=== PATIENT | male | born 1970 | race Caucasian/White ===

== ENCOUNTER 2022-07-18 11:34 | Day surgery (SDC) | payer OTHER, SELFPAY ==
[2022-07-18 11:51] VITALS: BMI 37.3
[2022-07-18] MEDS: LACTATED RINGERS 1000 ML 1,000 ML 100 ML IV (12:00)
[2022-07-18 12:29] VITALS: BP 149/103; PULSE 76; RESP 18; TEMP 36.4; O2SAT 96
[2022-07-18] MEDS: SODIUM CHLORIDE 0.9 % (FLUSH) 10 ML SYRINGE IVF (12:33)
[2022-07-18] MEDS: CEFAZOLIN 2 GM INJ IVP (13:02)
[2022-07-18] MEDS: LIDOCAINE 1% 5 ml (pf) 5 ML VIAL 10 ML INJECTION (13:07)
[2022-07-18] MEDS: BUPIVACAINE 0.25% 30 ML 10 ML INJECTION (13:07)
--- NOTE | 2022-07-18 13:40 | PM.GSPRC ---
Operative Note Date of procedure: 07/18/22 Type of Procedure: Excision of right forearm lipoma Procedure Description: After discussing the risks and benefits of the procedure, the patient signed informed consent.? The operative site was marked and the patient was brought to the operating room and placed on the operating table in supine position.? Care was taken to pad the patient's pressure points.?? The patient was then sedated by anesthesia.?? The operative site was then prepped and draped in the usual sterile fashion.? A time-out was then performed. Local anesthetic of 1% lidocaine and 0.25% Marcaine was used to infiltrate the surgical field. A a vertical incision was made with a 15 scalpel. Subcutaneous tissue was dissected down with electrocautery. A well-circumscribed, lobulated mass was encountered. Surrounding attachments were taken down with electrocautery. There was evidence of a superficial nerve, attached to the inferior aspect of the mass, this was gently taken down taking care not to injure the nerve. The mass was able to be removed in its entirety and measured 5.5 cm x 5 cm x 3 cm in size. The resulting incision was surveyed for hemostasis, which was excellent at the end of the case. The incision measured 4 cm in size. The incision was brought together with interrupted 3 0 Vicryl and running 4-0 Monocryl. suture ? Sterile dressings were then applied. ? The patient was then woken and transported to the recovery area in stable condition. ? The patient tolerated the procedure well. Findings: Large lipomatous mass of the right forearm. Anesthesia: MAC Surgeon: Ligia Croft MD Estimated blood loss (mL): 15 Condition: stable Disposition: same day
--- NOTE | 2022-07-18 13:44 | W.ANESCHARGE ---
Anesthesia Charges Start Date/Time Anesthesia Start Date: 07/18/22 Anesthesia Start Time: 12:53 Stop Date/Time Anesthesia Stop Date: 07/18/22 Anesthesia Stop Time: 13:45 Summary Emergency: No
[2022-07-18 13:46] VITALS: BP 137/93; PULSE 75; RESP 16; TEMP 36.3; O2SAT 96
[2022-07-18 14:00] VITALS: BP 139/107; PULSE 68; RESP 16; O2SAT 98
[2022-07-18 14:15] VITALS: BP 141/98; PULSE 63; RESP 16; O2SAT 95
[2022-07-18 14:30] VITALS: PULSE 76; RESP 16; O2SAT 96
[2022-07-18 14:47] VITALS: BP 134/96; PULSE 76; RESP 16; TEMP 36.7; O2SAT 97
== END 2022-07-18 14:58 | disposition home or self-care (01) ==
PROVIDERS: Visit Provider Surgery
PROC: (CPT 25071; principal; 2022-07-18 13:50)
DX: D17.21 Benign lipomatous neoplasm of skin and subcutaneous tissue of right arm (principal)
CPT/HCPCS: 25071; 00400; 88304; J0690; J2250; J2704; J3010; J3490; J7120